=== PATIENT | female | born 1950 | race American Indian/Alaskan Native ===

== ENCOUNTER 2017-08-16 11:11 | Outpatient (CLI) | payer OTHER ==
--- NOTE | 2017-08-16 21:07 | XRay Report ---
FINAL REPORT EXAM: XR KNEE BILAT 1-2V HISTORY: VISION PROBLEMS, ANXIETY, HYPERTENSION, KNEE PROBLEMS TECHNIQUE: AP and lateral views of the bilateral knees PRIORS: None. FINDINGS: Right knee: The bones are normally aligned and mineralized. The joint spaces are well-preserved. There is no evidence of acute fracture. The soft tissues are unremarkable. Left knee: There is calcification in the medial collateral ligament along the medial femoral condyle consistent with chronic MCL injury (Sanchez-Stieda disease). The bones are normally aligned and mineralized. The joint spaces are well-preserved. There is no evidence of acute fracture. 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
== END 2017-08-16 11:12 | disposition home or self-care (01) ==
LOC: XRAY 11:11
PROVIDERS: ATTEND Internal Medicine
DX: M25.862 Other specified joint disorders, left knee (principal); I10 Essential (primary) hypertension; F41.9 Anxiety disorder, unspecified; H53.9 Unspecified visual disturbance